=== PATIENT | female | born 1985 | race Two or more races ===

== ENCOUNTER 2025-07-27 12:00 | Observation (INO) | payer MEDICAID ==
[~2025-07-27] VITALS: Ht 160 cm; Wt 79.4 kg
--- NOTE | 2025-07-27 12:49 | DVH ---
CLINICAL HISTORY: Oligohydramnios. COMPARISON: None TECHNIQUE: biophysical profile was performed. Transabdominal sonographic images of the fetus were obtained. FINDINGS: The fetus is in cephalic position. heart rate measures 129 BPM. Amniotic fluid index measures 11.4 cm. The placenta is anterior in position without Visualized evidence for previa or abruption. Placental lakes visualized. BPP profile is an overall score of 8/8, with 2/2 points for breathing, with at least one episode of breathing over a 30 second duration during a 30 minute observation, 2/2 points for movements, with 3 or more discrete body or limb movements, 2/2 points for tone, with one or more episodes of extremity extension with return to flexion, or opening and closing of hand, and 2/2 points for amniotic fluid, with at least 1 pocket of amniotic fluid that measures 2 cm in 2 perpendicular planes. IMPRESSION: 1. BPP score of 8/8. 2. Additional findings as described above.
[2025-07-27] MEDS ORDERED: PREN-96 PO (13:37)
--- NOTE | 2025-07-31 12:19 | DVHDS2 ---
Physician Discharge Progress N Final Diagnosis: ama,r/o oligo Operations or Procedures: Operations or Procedures nst reactive reviwed,sono Condition on Discharge: Good Disposition: Home Discharge Instructions: Diet: Regular Activity: No Restrictions, As Tolerated Medications: na Follow Up Care: Specialist: 1d Discharge Statement: "Patient was advised to return to the ER or call 911 if any headaches, dizziness, shortness of breath, chest pain, abdominal pain, bleeding, fevers, or worsening of medical condition. Patient was counseled about treatment plan, medications, possible side effects, patientverbalized understanding. All questions were answered to the best of my ability. This discharge took greater then 30 minutes in planning, reviewing docume ntation, counseling the patient, and discussing with other team members." Visit Coding OBGYN Date of Service: Jul 27, 2025 Billing Provider: DAYAN RDZ DO HYDROLOGIC MODELER Common Visit Codes: [id number] OBS CARE (HIGH) HYDROLOGIC MODELER Procedure Codes: 03957-46- NON-STRESS TEST DAYAN RDZ DO Jul 31, 2025 12:19
== END 2025-07-27 14:00 | disposition home or self-care (01) ==
LOC: LDRP 12:00
PROVIDERS: ADMIT Obstetrics & Gynecology; ATTEND Obstetrics & Gynecology
DX: O40.3XX0 Polyhydramnios, third trimester, not applicable or unspecified (principal); O62.9 Abnormality of forces of labor, unspecified; Z3A.33 33 weeks gestation of pregnancy; Z98.890 Other specified postprocedural states
CPT/HCPCS: 59025; 76819; 81002; 94760; A4649; G0378

== ENCOUNTER 2025-07-29 03:51 | Observation (INO) | payer MEDICAID ==
[~2025-07-29 03:51] MED LIST: PREN-96 PO
--- NOTE | 2025-07-29 12:38 | DVH ---
CLINICAL HISTORY: Oligohydramnios. Advanced maternal age. COMPARISON: US BIOPHYSICAL PROFILE on DOS: 07/27/25 TECHNIQUE: biophysical profile was performed. Transabdominal sonographic images of the fetus were obtained. FINDINGS: The fetus is in cephalic position. heart rate measures 127 BPM. Amniotic fluid index measures 10.2 cm. The placenta is anterior in position without visualized evidence of previa or abruption. Pleural lakes are visualized. BPP profile is an overall score of 8/8, with 2/2 points for breathing, with at least one episode of breathing over a 30 second duration during a 30 minute observation, 2/2 points for movements, with 3 or more discrete body or limb movements, 2/2 points for tone, with one or more episodes of extremity extension with return to flexion, or opening and closing of hand, and 2/2 points for amniotic fluid, with at least 1 pocket of amniotic fluid that measures 2 cm in 2 perpendicular planes. IMPRESSION: BPP score of 8/8.
--- NOTE | 2025-07-29 15:20 | DVHDS2 ---
Physician Discharge Progress N Final Diagnosis: Advanced maternal age Operations or Procedures: Operations or Procedures NST/BPP DEVI all normal NO evidence of Oligohydramnios PATIENT: JAYSON SANTOROT: [id number] UNIT: [id number] : 1985 LOC: [facility] ROOM / BED: TRIAGE2 / A AGE / SEX: 40 / F ADM STATUS: ADM IN SERVICE 1145 ORDERING PHYSICIAN: PASTOR PUGH DO PROCEDURE(s): BPP - BIOPHYSICAL PROFILE REASON: Oligo/AMA ORDER NUMBER(s): [id number], ACCESSION NUMBER(s): [id number] CLINICAL HISTORY: Oligohydramnios. Advanced maternal age. COMPARISON: US BIOPHYSICAL PROFILE on DOS: 07/27/25 TECHNIQUE: biophysical profile was performed. Transabdominal sonographic images of the fetus were obtained. FINDINGS: The fetus is in cephalic position. heart rate measures 127 BPM. Amniotic fluid index measures 10.2 cm. The placenta is anterior in position without visualized evidence of previa or abruption. Pleural lakes are visualized. BPP profile is an overall score of 8/8, with 2/2 points for breathing, with at least one episode of breathing over a 30 second duration during a 30 minute observation, 2/2 points for movements, with 3 or more discrete body or limb movements, 2/2 points for tone, with one or more episodes of extremity extension with return to flexion, or opening and closing of hand, and 2/2 points for amniotic fluid, with at least 1 pocket of amniotic fluid that measures 2 cm in 2 perpendicular planes. IMPRESSION: BPP score of 8/8. ATED BY: JOSE ENRIQUE KWAN DO DICTATED DATE/TIME: 07/29/25 1235 Condition on Discharge: Stable Disposition: Home Discharge Instructions: Diet: Regular Activity: No Restrictions, As Tolerated Medications: NA Follow Up Care: Discharge Statement: "Patient was advised to return to the ER or call 911 if any headaches, dizziness, shortness of breath, chest pain, abdominal pain, bleeding, fevers, or worsening of medical condition. Patient was counseled about treatment plan, medications, possible side effects, patientverbalized understanding. All questions were answered to the best of my ability. This discharge took greater then 30 minutes in planning, reviewing documentation, counseling the patient, and discussing with other team members." Visit Coding OBGYN Date of Service: Jul 29, 2025 Billing Provider: PASTOR PUGH DO ELECTRONICS TECHNICIAN APPRENTICE Common Visit Codes: [id number] INP/OBS CARE(HIGH) ELECTRONICS TECHNICIAN APPRENTICE Procedure Codes: 00418-21- NON-STRESS TEST PASTOR PUGH DO Jul 29, 2025 15:20
== END 2025-07-29 13:27 | disposition home or self-care (01) ==
LOC: LDRP 11:40
PROVIDERS: ADMIT Obstetrics & Gynecology; ATTEND Obstetrics & Gynecology
DX: O42.913 Preterm premature rupture of membranes, unspecified as to length of time between rupture and onset of labor, third trimester (principal); Z3A.34 34 weeks gestation of pregnancy; Z98.890 Other specified postprocedural states
CPT/HCPCS: 59025; 76819; 81002; 94760; A4649; G0378

== ENCOUNTER 2025-08-10 16:00 | Observation (INO) | payer MEDICAID ==
--- NOTE | 2025-08-10 16:45 | DVH ---
BIOPHYSICAL PROFILE HISTORY: advance maternal age TECHNIQUE: Multiple transabdominal real-time grayscale sonographic images through the gravid uterus of the fetus with duplex Doppler color flow and M-mode spectral analysis FINDINGS: BIOPHYSICAL PROFILE: breathing score: 2 movement score: 2 tone score: 2 Quantitative DEVI score: 2 (DEVI: 10.99 cm, mvp: 3.7 cm.) Total score: 8/8 The cervix N/V Single live fetus in cephalic presentation. heart rate 126 beats per minute. Anterior Grade 2 placenta without previa or abruption Single live fetus at 35 weeks 5 days Biophysical profile score 8/8 corresponding to an SHIVANI of 09/09/2025 Estimated weight not calculated. g IMPRESSION: 1. Biophysical profile score: 8/8 2. FHR: 126 bpm
--- NOTE | 2025-08-11 07:21 | DVHDS2 ---
Physician Discharge Progress N Final Diagnosis: [id number] Operations or Procedures: Operations or Procedures nst reactive reviwed,sono Condition on Discharge: Good Disposition: Home Discharge Instructions: Diet: Regular Activity: No Restrictions, As Tolerated Medications: na Follow Up Care: Specialist: 4d Discharge Statement: "Patient was advised to return to the ER or call 911 if any headaches, dizziness, shortness of breath, chest pain, abdominal pain, bleeding, fevers, or worsening of medical condition. Patient was counseled about treatment plan, medications, possible side effects, patientverbalized understanding. All questions were answered to the best of my ability. This discharge took greater then 30 minutes in planning, reviewing documentati on, counseling the patient, and discussing with other team members." Visit Coding OBGYN Date of Service: Aug 10, 2025 Billing Provider: DAYAN DRZ DO GENERAL ASSISTANT Common Visit Codes: [id number] INP/OBS CARE (HIGH) GENERAL ASSISTANT Procedure Codes: 42355-80- NON-STRESS TEST DAYAN RDZ DO Aug 11, 2025 07:21
== END 2025-08-10 17:26 | disposition home or self-care (01) ==
LOC: LDRP 16:00 → UNDOADMOB 16:00 → LDRP 16:09 → UNDODISOB 17:26
PROVIDERS: ADMIT Obstetrics & Gynecology; ATTEND Obstetrics & Gynecology
DX: O09.523 Supervision of elderly multigravida, third trimester (principal); Z3A.35 35 weeks gestation of pregnancy; Z79.899 Other long term (current) drug therapy
CPT/HCPCS: 59025; 76819; 81002; 94760; A4649; G0378

== ENCOUNTER 2025-08-18 08:47 | Observation (INO) | payer MEDICAID ==
--- NOTE | 2025-08-18 10:38 | DVH ---
BIOPHYSICAL PROFILE HISTORY: ADVANCED MATERNAL AGE Comparison Study: US BIOPHYSICAL PROFILE on DOS: 08/10/25, US BIOPHYSICAL PROFILE on DOS: 07/29/25, US BIOPHYSICAL PROFILE on DOS: 07/27/25 TECHNIQUE: Multiple real-time grayscale sonographic images through the gravid uterus of the fetus with duplex Doppler color flow and M-mode spectral analysis FINDINGS: BIOPHYSICAL PROFILE: breathing score: 2 movement score: 2 tone score: 2 Quantitative DEVI score: 12.39 (DEVI: 12.39 Cm.) Total score: 88 The cervix is not visualized Single live fetus in cephalic presentation. heart rate 139.81 beats per minute. Anterior grade 2 placenta without previa or abruption Multiple prominent anechoic areas are present throughout the placenta measuring up to 2.0 cm possibly representing venous placental lakes. IMPRESSION: Biophysical profile score: 8 Multiple prominent anechoic areas are present throughout the placenta measuring up to 2.0 cm possibly representing venous placental lakes.
--- NOTE | 2025-08-18 10:50 | DVHDS2 ---
Physician Discharge Progress N Final Diagnosis: ama 36wks Operations or Procedures: Operations or Procedures nst reactive reviwed,sono Condition on Discharge: Good Disposition: Home Discharge Instructions: Diet: Regular Activity: No Restrictions, As Tolerated Medications: na Follow Up Care: Specialist: 4d Discharge Statement: "Patient was advised to return to the ER or call 911 if any headaches, dizziness, shortness of breath, chest pain, abdominal pain, bleeding, fevers, or worsening of medical condition. Patient was counseled about treatment plan, medications, possible side effects, patientverbalized understanding. All questions were answered to the best of my ability. This discharge took greater then 30 minutes in planning, reviewing documentat ion, counseling the patient, and discussing with other team members." Visit Coding OBGYN Date of Service: Aug 18, 2025 Billing Provider: DAYAN RDZ DO SALES OPERATIONS SPECIALIST Common Visit Codes: [id number] OBS CARE (HIGH) SALES OPERATIONS SPECIALIST Procedure Codes: 31526-22- NON-STRESS TEST DAYAN RDZ DO Aug 18, 2025 10:50
[2025-08-27] MEDS ORDERED: IBUP-1454 PO (07:10)
== END 2025-08-18 10:41 | disposition home or self-care (01) ==
LOC: LDRP 08:47 → UNDODISOB 10:20
PROVIDERS: ADMIT Obstetrics & Gynecology; ATTEND Obstetrics & Gynecology
DX: O09.523 Supervision of elderly multigravida, third trimester (principal); Z3A.36 36 weeks gestation of pregnancy; Z98.890 Other specified postprocedural states
CPT/HCPCS: 59025; 76819; 81002; 94760; A4649; G0378